=== PATIENT | female | born 1990 | race Caucasian/White ===

== ENCOUNTER 2016-11-13 18:41 | Emergency (ER) | payer OTHER ==
[~2016-11-13] VITALS: Ht 162.6 cm; Wt 112.5 kg
[2016-11-13 18:49] VITALS: Ht 162.6 cm; Wt 112.5 kg
--- NOTE | 2016-11-13 20:11 | RADRPT ---
PROCEDURE: XR Chest. CLINICAL INDICATION: SOB TECHNIQUE: Single AP portable chest COMPARISON: None FINDINGS: The cardiomediastinal silhouette is within normal limits. The lungs are clear without pleural effus ion or focal consolidation. No pneumothorax. The osseous structures and soft tissues are unremarkab le. IMPRESSION: No evidence for active cardiopulmonary disease. RPTAT:AAJJ Cinthia Roe Physician Date Time Electronically viewed and signed by Cinthia Roe Physician on 11/13/2016 20:11 FRANCY/
[2016-11-13] MEDS ORDERED: ALBUTEROL 0.5% (NEB) 2.5 MG/0.5 ML AMP HHN STA (20:17)
[2016-11-13 20:51] LABS: BASOPHILS % 0.3 % (0.0-2.0); EOSINOPHILS # 0.1 10^3/ul (0.0-0.5); EOSINOPHILS % 1.3 % (0.0-7.0); HEMATOCRIT 41.5 % (37.0-47.0); HEMOGLOBIN 14.2 g/dl (12.0-16.0); MEAN CORPUSCULAR HEMOGLOBIN 29.5 pg (29.0-33.0); MEAN CORPUSCULAR HGB CONC 34.3 g/dl (32.0-37.0); MEAN PLATELET VOLUME 8.6 fl (7.4-10.4); MONOCYTE # 0.5 10^3/ul (0.3-0.9); MONOCYTES % 7.1 % (0.0-11.0); NEUTROPHIL # 3.3 10^3/ul (1.6-7.5); NEUTROPHILS % 48.3 % (39.0-77.0); PLATELET COUNT 273 10^3/UL (140-440); RED BLOOD COUNT 4.82 10^6/ul (4.20-5.40); RED CELL DISTRIBUTION WIDTH 13.4 % (11.5-14.5); UNCORRECTED WBC 6.9 10^3/ul (4.8-10.8); WHITE BLOOD COUNT 6.9 10^3/ul (4.8-10.8)
[2016-11-13 20:56] LABS: CONDITION 1
[2016-11-13 21:00] LABS: INR 0.89; PT RATIO 0.9
[2016-11-13 21:01] LABS: CREATININE 0.66 mg/dl (0.44-1.00); PARTIAL THROMBOPLASTIN TIME 28.8 Sec (25.0-35.0)
[2016-11-13 21:02] LABS: CALCIUM 9.3 mg/dl (8.4-10.2)
[2016-11-13 21:03] LABS: D-DIMER 309.26 ng/ml (<460)
[2016-11-13] MEDS ORDERED: AZIT250T94 PO (21:08)
[2016-11-13] MEDS ORDERED: IBUP-1542 PO (21:08)
[2016-11-13] MEDS ORDERED: PROM5SYR2 PO (21:08)
[2016-11-13] MEDS ORDERED: ALBU18HF INHALATION (21:08)
--- NOTE | 2016-11-13 21:09 | ERD ---
ER Documentation Chief Complaint Date/Time DATE: 11/13/16 TIME: 21:08 Chief Complaint cough x 1 week HPI This 26-year-old female presents with a cough for last week slightly productive. She had a sudden onset of shortness of breath starting today. She denies fevers feels like her cough is slightly improved. She has vomiting, abdominal pain, chest pain. ROS All systems reviewed and are negative except as per history of present illness. Medications Home Meds Active Scripts Ibuprofen* (Motrin*) 600 Mg Tab, 600 MG PO Q6, #15 TAB Prov:ARNAUD GONZALES MD 11/13/16 Albuterol Sulfate* (Ventolin HFA*) 18 Gm Hfa.aer.ad, 2 PUFF INHALATION Q4H for 5 Days, #1 INHALER Prov:ARNAUD GONZALES MD 11/13/16 Promethazine HCl/Codeine (Prometh-Codein 6.25-10 mg/5 ml) 5 Ml Syrup, 5 ML PO QID for 5 Days Prov:ARNAUD GONZALES MD 11/13/16 Azithromycin* (Zithromax*) 250 Mg Tablet, 250 MG PO .ZPACK DIRECTED, #6 TAB TAKE 500 MG (2 TABS) THE FIRST DAY THEN 250 MG (1 TAB) DAYS 2-5 Prov:ARNAUD GONZALES MD 11/13/16 Allergies Allergies: Coded Allergies: No Known Allergy (Unverified , 11/13/16) PMhx/Soc Medical and Surgical Hx: pt denies Medical Hx, pt denies Surgical Hx History of Surgery: No Anesthesia Reaction: No Hx Neurological Disorder: No Hx Respiratory Disorders: No Hx Cardiac Disorders: No Hx Psychiatric Problems: No Hx Miscellaneous Medical Probl: No Hx Alcohol Use: No Hx Substance Use: No Hx Tobacco Use: No Smoking Status: Never smoker Physical Exam Vitals Vital Signs Date Time Temp Pulse Resp B/P Pulse Ox O2 Delivery O2 Flow Rate FiO2 11/13/16 20:35 84 26 97 21 11/13/16 18:49 97.7 82 20 150/88 100 Physical Exam Const: [] Alert, no visible possible air hunger per Head: Atraumatic Eyes: Normal Conjunctiva ENT: Normal External Ears, Nose and Mouth. Neck: Full range of motion..~ No meningismus. Resp: Clear to auscultation bilaterally Cardio: Regular rate and rhythm, no murmurs Abd: Soft, non tender, non distended. Normal bowel sounds Skin: No petechiae or rashes Back: No midline or flank tenderness Ext: No cyanosis, or edema Neur: Awake and alert Psych: Normal Mood and Affect Result Diagram: 11/13/16203011/13/162030 Results 24 hrs Laboratory Tests Test 11/13/16 20:31 Activated Partial Thromboplast Time 28.8Sec Anion Gap 18 Basophils # 0.010^3/ul Basophils % 0.3% Blood Urea Nitrogen 7mg/dl Calcium Level 9.3mg/dl Carbon Dioxide Level 28mmol/L Chloride Level 101mmol/L Creatinine 0.66mg/dl D-Dimer 309.26ng/ml D-Dimer Comment Eosinophils # 0.110^3/ul Eosinophils % 1.3% Glucose Level 95mg/dl Hematocrit 41.5% Hemoglobin 14.2g/dl INR International Normalized Ratio 0.89 Lymphocytes # 3.010^3/ul Lymphocytes % 43.0% Mean Corpuscular Hemoglobin 29.5pg Mean Corpuscular Hemoglobin Concent 34.3g/dl Mean Corpuscular Volume 86.0fl Mean Platelet Volume 8.6fl Monocytes # 0.510^3/ul Monocytes % 7.1% Neutrophils # 3.310^3/ul Neutrophils % 48.3% Nucleated Red Blood Cells # 0.010^3/ul Nucleated Red Blood Cells % 0.0/100WBC Platelet Count 01213^3/UL Potassium Level 4.0mmol/L Prothrombin Time 12.0Sec Prothrombin Time Ratio 0.9 Red Blood Count 4.8210^6/ul Red Cell Distribution Width 13.4% Sodium Level 143mmol/L White Blood Count 6.910^3/ul Current Medications Medications (Trade) Dose Ordered Sig/Nick Route PRN Reason Start Time Stop Time Status Last Admin Dose Admin Albuterol (Proventil 0.5% (Neb)) 2.5 mg ONCE STAT HHN 11/13/16 20:17 11/13/16 20:20 DC 11/13/16 20:35 Procedures/MDM EKG: Rate/Rhythm: [Normal Sinus Rhythm] rate equals 84 QRS, ST, T-waves: [No changes consistent w/ acute ischemia] Impression: [No evidence of ischemia or arrhythmia] Chest X-ray 1V Interpreted by me: Soft Tissue: No acute abnormalities Bones: No acute abnormalities Mediastinum/Cardiac Silhouette/Lungs: [No acute abnormalities] Given the uncertain cause of shortness of breath CBC was performed which is normal. CMP is normal d-dimer less than 450. Patient was given albuterol treatment trial and is much improved symptoms after albuterol treatment and observation treatment patient's voice returned home. Patient presents with shortness of breath uncertain etiology after URI. She will treated with Zithromax, cough syrup as well as a Ventolin inhaler given her improvement with the breathing treatment. Signs and symptoms are not suggestive of pneumonia, acute coronary syndrome, pulmonary embolism. She may have had some bronchospasm patient was discharged home with instructions to follow-up with primary doctor this week return to ER for new or worsening symptoms. Departure Diagnosis: Primary Impression: Cough Additional Impression: Shortness of breath Condition: Stable Patient Instructions: Acute Bronchitis, Coping with Shortness of Breath: Controlling Stress Additional Instructions: All examinations normal today. May be effects of recent URI or bronchitis. Recheck with primary doctor this week or return to the ER for new or worsening symptoms ARNAUD GONZALES MD Nov 13, 2016 21:09
== END 2016-11-13 22:17 | disposition home or self-care (01) ==
LOC: FTE 18:41
DX: R05 Cough (principal); R06.02 Shortness of breath
CPT/HCPCS: 36415; 71010; 80048; 85025; 85378; 85610; 85730; 93005; 94664